=== PATIENT | female | born 1960 | race African-American/Black ===

== ENCOUNTER 2019-12-24 11:02 | Emergency (ER) | payer BC ==
[2019-12-24 11:26] VITALS: BP 124/66; PULSE 68; TEMP 98; BMI 35.4
[2019-12-24] MEDS ORDERED: SODIUM CHLORIDE 1,000 ML IV STA (11:45)
[2019-12-24] MEDS ORDERED: morphine CARPU-JECT 4 MG/1 ML DISP.SYRIN IVPUSH ONE (11:45)
--- NOTE | 2019-12-24 12:01 | PDOC ---
History of Present Illness - General Chief Complaint: Pain, Acute Stated Complaint: LWR ABD PAIN Time Seen by Provider: 12/24/19 11:37 History Source: Patient Exam Limitations: No Limitations - History of Present Illness Initial Comments: 12/24/19 11:47 Patient is a 59F with history of chronic back pain here today complaining of RLQ abdominal pain for the past two days. Patient states that the pain started suddenly two days ago and radiates to her back and leg. She reports that she can 't get comfortable. Denies vomiting, fevers, chills. Denies diarrhea. Last bowel movement yesterday. Patient states she thought her symptoms might be due to constipation so she took mag citrate at home. Denies shortness of breath, chest pain. Denies prior abdominal surgery. Patient reports going to acupuncture because she thought this may be related to her back pain. Past History - Past Medical History Allergies/Adverse Reactions: Allergies Allergy/AdvReac Type Severity Reaction Status Date / Time No Known Allergies Allergy Verified 12/24/19 13:27 Home Medications: Ambulatory Orders Oxycodone HCl/Acetaminophen [Percocet 5-325 mg Tablet -] 1 - 2 tab PO Q6H PRN # 10 tablet 10/14/13 Clotrimazole/Betamet Diprop [Lotrisone -] 1 tab PO BID 12/24/19 Cyclobenzaprine HCl [Flexeril 10 mg] 10 mg PO BID PRN 12/24/19 Ibuprofen 600 mg PO BID PRN 12/24/19 COPD: No - Immunization History Immunization Up to Date: No - Psycho Social/Smoking Cessation Hx Smoking History: Never smoked Have you smoked in the past 12 months: No Number of Cigarettes Smoked Daily: 3 Information on smoking cessation initiated: No Hx Alcohol Use: No Drug/Substance Use Hx: No Substance Use Type: None Review of Systems - Review of Systems Able to Perform ROS?: Yes Comments:: 12/24/19 12:02 GENERAL/CONSTITUTIONAL: No fever or chills. No weakness. HEAD, EYES, EARS, NOSE AND THROAT: No change in vision. No sore throat. CARDIOVASCULAR: No chest pain or shortness of breath RESPIRATORY: No cough, wheezing, or hemoptysis. GASTROINTESTINAL: No nausea, vomiting, diarrhea or constipation. GENITOURINARY: No dysuria, frequency, or change in urination. MUSCULOSKELETAL: No joint or muscle swelling or pain. No neck or back pain. SKIN: No rash NEUROLOGIC: No headache, vertigo, loss of consciousness, or change in strength/ sensation. ENDOCRINE: No increased thirst. No abnormal weight change ALLERGIC/IMMUNOLOGIC: No hives or skin allergy. *Physical Exam - Vital Signs Last Vital Signs Temp Pulse Resp BP Pulse Ox 98.0 F 68 16 124/66 95 12/24/19 11:24 12/24/19 11:24 12/24/19 11:24 12/24/19 11:24 12/24/19 11:24 - Physical Exam 12/24/19 12:18 GENERAL: Awake, alert, and fully oriented, laying on side, moving in pain HEAD: No signs of trauma, normocephalic, atraumatic EYES: PERRLA, EOMI, sclera anicteric, conjunctiva clear ENT: Auricles normal inspection, hearing grossly normal, nares patent, oropharynx clear without exudates. Moist mucosa NECK: Normal ROM, supple, no lymphadenopathy, JVD, or masses LUNGS: No distress, speaks full sentences, clear to auscultation bilaterally HEART: Regular rate and rhythm, normal S1 and S2, no murmurs, rubs or gallops, peripheral pulses normal and equal bilaterally. ABDOMEN: Soft, +RLQ tenderness, +obturator and psoas sign. No rigidity. EXTREMITIES: Normal inspection, Normal range of motion, no edema. No clubbing or cyanosis. NEUROLOGICAL: Cranial nerves II through XII grossly intact. Normal speech, no focal sensorimotor deficits SKIN: Warm, Dry, normal turgor, no rashes or lesions noted. ED Treatment Course - LABORATORY CBC & Chemistry Diagram: 12/24/19 12:00 12/24/19 12:00 - RADIOLOGY Radiology Studies Ordered: Category Date Time Status ABDOMEN & PELVIS CT WITH CONTR [CT] Stat CT Scan 12/24/19 11:46 Ordered Medical Decision Making - Medical Decision Making 12/24/19 12:26 Patient is 59F here today with RLQ abdominal pain. Vitals normal and stable. Exam notable for RLQ abdominal pain. DDx includes, but is not limited to: UTI, appendicits, kidney stone, hernia. Will evaluate further with cbc, cmp, lipase, ua/uc. Will treat with fluids and morphine. 12/24/19 14:39 CBC normal CMP reassuring. UA shows blood and bacturia. CT shows no nephrolithiasis or other significant abnormality Patient re-examined. Pain has improved. Changed from squeezing to an ache. Suspect stone passed between initial evaluation and CT scan. Will discharge home with return precautions. Will treat UA with keflex. Discharge - Discharge Information Problems reviewed: Yes Clinical Impression/Diagnosis: Kidney stone Condition: Stable Disposition: HOME - Admission No - Follow up/Referral - Patient Discharge Instructions Patient Printed Discharge Instructions: DI for Kidney Stones, DI for Urinary Tract Infection (UTI) Additional Instructions: Please return if you have any new, worsening or concerning symptoms. Please follow up with your primary care doctor this week. - Post Discharge Activity Work/Back to School Note: Back to Work
[2019-12-24] MEDS ORDERED: HYDROmorphone HCL CARPU-JECT 2 MG/1 ML DISP.SYRIN IVPUSH ONE (12:03)
[2019-12-24] MEDS ORDERED: HYDROmorphone HCl 2 MG/ML VIAL ONE (12:11)
[2019-12-24 12:28] LABS: INR 0.99 (0.83-1.09); PROTHROMBIN TIME (PATIENT) 11.7 SEC (9.7-13.0)
[2019-12-24 12:30] LABS: ACTIVATED PTT 32.8 SECONDS (25.2-36.5)
[2019-12-24 12:35] LABS: BASO % 0.6 % (0-2.0); EOS % 9.3 % (0-4.5); LYMPH % 27.2 % (8-40); MCH 29.5 pg (25.7-33.7); MCHC 32.7 g/dl (32.0-36.0); MEAN CELL VOLUME 90.3 fl (80-96); MEAN PLT VOLUME 7.6 fl (7.5-11.1); MONO % 8.3 % (3.8-10.2); NEUT % 54.6 % (42.8-82.8); PLATELET COUNT 269 K/MM3 (134-434); RDW 15.2 % (11.6-15.6); WHITE BLOOD COUNT 7.3 K/mm3 (4.0-10.0)
--- NOTE | 2019-12-24 12:40 | PDOC ---
Documentation entered by Vin Stern SCRIBE, acting as scribe for Gila Au DO. Gila Au DO: This documentation has been prepared by the Jarred vega Nirvannie, SCRIBE, under my direction and personally reviewed by me in its entirety. I confirm that the documentation accurately reflects all work, treatment, procedures, and medical decision making performed by me. Attending Attestation - Resident Resident Name: Ángel Butcher - ED Attending Attestation I have performed the following: I have examined & evaluated the patient, The case was reviewed & discussed with the resident, I agree w/resident's findings & plan, Exceptions are as noted - HPI HPI: 12/24/19 12:48 The patient is a 59 year old female, with a significant past medical history of sciatica, who presents to the emergency department with 2 days of RLQ abdominal pain with radiation to the back, suprapubic, and down the right leg. Patient endorses taking Citrate of Magnesia for her symptoms, with minimal relief. Patient notes she cannot feel comfortable secondary to her pain prompting her arrival to the ED. She denies recent fevers, chills, headache or dizziness. She denies recent nausea, vomiting, diarrhea or constipation. She denies recent dysuria, frequency, urgency or hematuria. She denies recent chest pain or shortness of breath. Allergies: NKDA Primary Care Physician: Dr. Duncan - Physicial Exam PE: 12/24/19 12:48 Constitutional: Awake, alert, oriented. No acute distress. Head: Normocephalic. Atraumatic Eyes: PERRL. EOMI. Conjunctivae are not pale. ENT: Mucous membranes are moist and intact. Posterior pharynx without exudates or erythema. Uvula midline. Neck: Supple. Full ROM. No lymphadenopathy. Cardiovascular: Regular rate. Regular rhythm. S1, S2 regular. Distal pulses are 2+ and symmetric. Pulmonary/Chest: No evidence of respiratory distress. Clear to auscultation bilaterally No wheezing, rales or rhonchi. Abdominal: + RLQ tenderness. Soft and non-distended. No rebound, guarding or rigidity. No organomegaly. No palpable masses. Good bowel sounds. Back: +Right flank, R lumbar tenderness. No midline tenderness. Musculoskeletal: No edema. No cyanosis. No clubbing. Full range of motion in all extremities. No calf tenderness. Radial/pedal pulses are intact and 2+ bilaterally Skin: Skin is warm and dry. No petechiae. No purpura. Neurological: Alert and oriented to person, place, and time. Cranial nerves II -XII are grossly intact. Normal speech. Strength is grossly symmetric. No sensory deficits. Psychiatric: Good eye contact. Normal interaction, affect and behavior. - Medical Decision Making 12/24/19 12:38 a/p: 59yo female with R flank/r back pain -pt states hx of sciatica -pt saw accupuncture x 2 without relief -pain to RLQ, tried mag citrate without relief, no assoc n/v/d -states pain in back, R flank, RLQ to suprapubic region -will send labs, ct abd/pelvis, no prior hx of renal colic, low suspicion for appy -will hydrate, dilaudid, reassess 12/24/19 13:59 pt with blood in urine suspect renal colic pt to ct 12/24/19 14:25 ct without acute intraabd pathology, no appy, no renal colic 12/24/19 14:45 pain improved, suspect passed renal stone will give keflex for bactiuria and recent stone stable for dc to home
[2019-12-24 13:00] LABS: EPI CELLS 5.5 /HPF (0-5/HPF); HYALINE CASTS 5 /lpf (0-8); PH,URINE 5.5 (5.0-8.0); URINE APPEARANCE CLOUDY; URINE BACTERIA 534.9 /hpf (NEGATIVE); URINE BILIRUBIN NEGATIVE (NEGATIVE); URINE COLOR YELLOW; URINE GLUCOSE (UA) NEGATIVE (NEGATIVE); URINE KETONE NEGATIVE (NEGATIVE); URINE LEUK ESTERASE NEGATIVE (NEGATIVE); URINE NITRITE NEGATIVE (NEGATIVE); URINE PROTEIN NEGATIVE (NEGATIVE); URINE RBC 4 /hpf (0-4); URINE UROBILINOGEN 0.2 mg/dL (0.2-1.0); URINE WBC 7 /hpf (0-5)
[2019-12-24 13:18] LABS: ALBUMIN 3.7 g/dl (3.4-5.0); BILIRUBIN,TOTAL 0.8 mg/dL (0.2-1); BLOOD UREA NITROGEN 11.9 mg/dL (7-18); CALCIUM 9.4 mg/dL (8.5-10.1); POTASSIUM 4.6 mmol/L (3.5-5.1); TOT PROT 7.6 g/dl (6.4-8.2)
[2019-12-24] MEDS ORDERED: CEPHALEXIN MONOHYDRATE 500 MG CAPSULE (UD) PO ONE (14:43)
[2019-12-24] MEDS ORDERED: CEPHALEXIN MONOHYDRATE 500 MG CAPSULE (UD) ONE (14:49)
== END 2019-12-24 14:59 | disposition home or self-care (01) ==
LOC: JER 11:02
PROC: 3E0337Z Introduction of Electrolytic and Water Balance Substance into Peripheral Vein, Percutaneous Approach (ICD-10-PCS; principal; 2019-12-24)
PROC: 3E033NZ Introduction of Analgesics, Hypnotics, Sedatives into Peripheral Vein, Percutaneous Approach (ICD-10-PCS; 2019-12-24)
DX: N20.0 Calculus of kidney (principal); R82.71 Bacteriuria; R31.9 Hematuria, unspecified
CPT/HCPCS: 36415; 74176-TC; 80053; 81003; 83690; 85025; 85610; 85730; 86850; 86900; 86901; 87086; 99284-25; J7030

== ENCOUNTER 2019-12-26 14:38 | Emergency (ER) | payer BC ==
[2019-12-26 14:45] VITALS: TEMP 98; BMI 35.4
--- NOTE | 2019-12-26 14:55 | PDOC ---
Rapid Medical Evaluation Chief Complaint: Pain, Acute Time Seen by Provider: 12/26/19 14:45 Medical Evaluation: Allergies Allergy/AdvReac Type Severity Reaction Status Date / Time No Known Allergies Allergy Verified 12/24/19 13:27 Vital Signs Temp Pulse Resp BP Pulse Ox 98.0 F 74 16 115/64 99 12/26/19 14:42 12/26/19 14:42 12/26/19 14:42 12/26/19 14:42 12/26/19 14:42 12/26/19 14:48 Pt c/o: continual rt abd pain now with dizziness, was here 2 days ago and placed on abx for uti Pt on brief exam: vss. no cva tenderness, rt lq/flank/ruq tenderness, pt ordered for: labs, urine, Pt to proceed to the ED Discharge Disposition - Diagnosis RLQ abdominal pain - Discharge Dispostion Disposition: HOME Condition at time of disposition: Improved - Prescriptions Prescriptions: Ketorolac Tromethamine [Toradol] 10 mg PO TID PRN #12 tablet PRN Reason: Pain Level 6-10 - Referrals Referrals: Shivam Duncan [Primary Care Provider] - - Patient Instructions Additional Instructions: You were seen and evaluated in the emergency department for abdominal pain. Emergency causes have been ruled out. Your pain is most likely from your currently treated UTI or a passed kidney stone. Imaging was negative for concerning causes. Continue your antibiotic as prescribed 12/24 for your urinary tract infection. A prescription pain medication (Toradol) has been sent to your pharmacy. Take this as directed. Please follow up with your primary care doctor in the next 2-3 days if symptoms persist. Return to the ED for any new or concerning symptoms. - Post Discharge Activity Work/School Note: Back to Work
[2019-12-26 16:20] LABS: BASO % 0.6 % (0-2.0); EOS % 6.3 % (0-4.5); HEMOGLOBIN 14.9 GM/dL (10.7-15.3); LYMPH % 33.7 % (8-40); MCH 29.3 pg (25.7-33.7); MCHC 33.1 g/dl (32.0-36.0); MEAN CELL VOLUME 88.4 fl (80-96); MEAN PLT VOLUME 7.3 fl (7.5-11.1); MONO % 9.5 % (3.8-10.2); NEUT % 49.9 % (42.8-82.8); PLATELET COUNT 240 K/MM3 (134-434); RBC 5.09 M/mm3 (3.60-5.2); RDW 14.6 % (11.6-15.6); WHITE BLOOD COUNT 6.6 K/mm3 (4.0-10.0)
[2019-12-26 16:37] LABS: ALBUMIN 3.8 g/dl (3.4-5.0); BILIRUBIN,TOTAL 0.6 mg/dL (0.2-1); BLOOD UREA NITROGEN 11.7 mg/dL (7-18); CALCIUM 9.4 mg/dL (8.5-10.1); CREATININE 1.1 mg/dL (0.55-1.3); TOT PROT 7.8 g/dl (6.4-8.2)
[2019-12-26] MEDS ORDERED: KETOROLAC TROMETHAMINE 30 MG/1 ML VIAL IVPUSH ONE (17:14)
[2019-12-26] MEDS ORDERED: SODIUM CHLORIDE 0.9% 500 ML INFUS.BAG IV ONE (17:14)
[2019-12-26] MEDS ORDERED: KETOROLAC TROMETHAMINE 30 MG/1 ML VIAL ONE (17:18)
[2019-12-26] MEDS ORDERED: morphine CARPU-JECT 4 MG/1 ML DISP.SYRIN IVPUSH ONE ×2 (17:45→19:33)
--- NOTE | 2019-12-26 17:46 | PDOC ---
History of Present Illness - General Chief Complaint: Pain, Acute Stated Complaint: KIDNEY STONE Time Seen by Provider: 12/26/19 14:45 History Source: Patient Exam Limitations: No Limitations - History of Present Illness Initial Comments: 12/26/19 17:46 54yF w PMHx sciatica, chronic back pain presenting w 2d intermittent RLQ pain, yesterday fever 102. Was seen 2d ago for similar symptoms, CT showed fibroid, no kidney stone, pancreas head calcification, diagnosed w UTI, DC home Took keflex, no pain meds, without relief. Denies nausea/vomiting, bowel mvmt changes , chest pain/SOB Primary Care Physician: Dr. Duncan Past History - Past Medical History Allergies/Adverse Reactions: Allergies Allergy/AdvReac Type Severity Reaction Status Date / Time No Known Allergies Allergy Verified 12/24/19 13:27 Home Medications: Ambulatory Orders NK [No Known Home Medication] 12/26/19 COPD: No - Reproductive History Therapeutic (s) & number: No - Immunization History Immunization Up to Date: No - Psycho Social/Smoking Cessation Hx Smoking History: Never smoked Have you smoked in the past 12 months: No Number of Cigarettes Smoked Daily: 3 Information on smoking cessation initiated: No Hx Alcohol Use: No Drug/Substance Use Hx: No Substance Use Type: None Review of Systems - Review of Systems Constitutional: Yes: Fever. No: Chills HEENTM: No: Eye Pain, Nose Pain Respiratory: No: Cough, Shortness of Breath Cardiac (ROS): No: Chest Pain, Palpitations ABD/GI: No: Abdominal Distended, Constipated, Diarrhea, Nausea, Vomiting : No: Burning, Dysuria Musculoskeletal: No: Back Pain, Joint Pain Integumentary: No: Bruising, Flushing Neurological: No: Headache, Seizure Psychiatric: No: Anxiety, Depression Endocrine: No: Intolerance to Cold, Intolerance to Heat Hematologic/Lymphatic: No: Anemia, Blood Clots *Physical Exam - Vital Signs Last Vital Signs Temp Pulse Resp BP Pulse Ox 98.0 F 74 16 115/64 99 12/26/19 14:42 12/26/19 14:42 12/26/19 14:42 12/26/19 14:42 12/26/19 14:42 - Physical Exam General Appearance: Yes: Nourished, Appropriately Dressed, Moderate Distress HEENT: positive: EOMI, PAWEL, Normal Voice, Hearing Grossly Normal Respiratory/Chest: positive: Lungs Clear, Normal Breath Sounds. negative: Chest Tender, Respiratory Distress Cardiovascular: positive: Regular Rhythm, Regular Rate, S1, S2. negative: Edema , Murmur Gastrointestinal/Abdominal: positive: Normal Bowel Sounds, Tender (moderate RLQ tender), Flat, Soft. negative: Organomegaly, Distended, Guarding, Rebound Musculoskeletal: positive: CVA Tenderness (R). negative: CVA Tenderness (L) Integumentary: positive: Normal Color Neurologic: positive: Fully Oriented, Alert, Normal Response, Respond to painful stimul, Responsive. negative: Confused, Disoriented ED Treatment Course - LABORATORY CBC & Chemistry Diagram: 12/26/19 15:40 12/26/19 15:40 - ADDITIONAL ORDERS Additional order review: Laboratory Results 12/26/19 12/26/19 15:40 15:40 Sodium 140 Potassium 4.0 Chloride 106 Carbon Dioxide 24 Anion Gap 9 BUN 11.7 Creatinine 1.1 Est GFR (CKD-EPI)AfAm 64.54 Est GFR (CKD-EPI)NonAf 55.69 Random Glucose 121 H Calcium 9.4 Total Bilirubin 0.6 AST 22 ALT 29 Alkaline Phosphatase 63 Total Protein 7.8 Albumin 3.8 Lipase 42 L 12/26/19 15:40 RBC 5.09 MCV 88.4 MCHC 33.1 RDW 14.6 MPV 7.3 L Neutrophils % 49.9 Lymphocytes % 33.7 D Monocytes % 9.5 Eosinophils % 6.3 H Basophils % 0.6 - RADIOLOGY Radiology Studies Ordered: Category Date Time Status KIDNEY / RENAL US [US] Stat Ultrasound 12/26/19 17:21 Ordered - Medications Given in the ED: ED Medications Discontinued Medications Generic Name Dose Route Start Last Admin Trade Name Freq PRN Reason Stop Dose Admin Ketorolac Tromethamine 30 mg 12/26/19 17:14 12/26/19 17:24 Toradol Injection - IVPUSH 12/26/19 17:15 30 mg ONCE ONE Administration Sodium Chloride 1,000 ml 12/26/19 17:14 12/26/19 17:24 Normal Saline - IV 12/26/19 17:15 1,000 ml ONCE ONE Administration Medical Decision Making - Medical Decision Making 12/26/19 18:59 Renal US - normal kidneys --- 54yF w PMHx sciatica, chronic back pain presenting w 2d intermittent RLQ pain, yesterday fever. UTI vs kidney stone. Low concern for pancreatitis vs pyelonephritis (normal kidney US) Given 4 morphine, toradol, 1L NS Signed out to night team - consider spiral CT if blood in UA concerning for kidney stone Discharge - Discharge Information Problems reviewed: Yes Clinical Impression/Diagnosis: RLQ abdominal pain Condition: Improved - Follow up/Referral Referrals: Shivam Duncan [Primary Care Provider] - - Patient Discharge Instructions - Post Discharge Activity
[2019-12-26] MEDS ORDERED: morphine SULFATE 4 MG/ML VIAL ONE (17:49)
[2019-12-26 19:12] LABS: EPI CELLS 5.1 /HPF (0-5/HPF); HYALINE CASTS 6 /lpf (0-8); URINE APPEARANCE CLEAR; URINE BACTERIA 74.1 /hpf (NEGATIVE); URINE BILIRUBIN NEGATIVE (NEGATIVE); URINE COLOR YELLOW; URINE GLUCOSE (UA) NEGATIVE (NEGATIVE); URINE KETONE NEGATIVE (NEGATIVE); URINE LEUK ESTERASE NEGATIVE (NEGATIVE); URINE NITRITE NEGATIVE (NEGATIVE); URINE PROTEIN TRACE (NEGATIVE); URINE RBC 2 /hpf (0-4); URINE WBC 4 /hpf (0-5)
--- NOTE | 2019-12-26 19:18 | PDOC ---
*Physical Exam - Vital Signs Last Vital Signs Temp Pulse Resp BP Pulse Ox 98.0 F 74 16 115/64 99 12/26/19 14:42 12/26/19 14:42 12/26/19 14:42 12/26/19 14:42 12/26/19 14:42 ED Treatment Course - LABORATORY CBC & Chemistry Diagram: 12/26/19 15:40 12/26/19 15:40 - ADDITIONAL ORDERS Additional order review: Laboratory Results 12/26/19 12/26/19 12/26/19 18:40 15:40 15:40 Sodium 140 Potassium 4.0 Chloride 106 Carbon Dioxide 24 Anion Gap 9 BUN 11.7 Creatinine 1.1 Est GFR (CKD-EPI)AfAm 64.54 Est GFR (CKD-EPI)NonAf 55.69 Random Glucose 121 H Calcium 9.4 Total Bilirubin 0.6 AST 22 ALT 29 Alkaline Phosphatase 63 Total Protein 7.8 Albumin 3.8 Lipase 42 L Urine Color Yellow Urine Appearance Clear Urine pH 5.0 Ur Specific Valders 1.018 Urine Protein Trace Urine Glucose (UA) Negative Urine Ketones Negative Urine Blood 2+ H Urine Nitrite Negative Urine Bilirubin Negative Urine Urobilinogen 1.0 Ur Leukocyte Esterase Negative Urine WBC (Auto) 4 Urine RBC (Auto) 2 Urine Casts (Auto) 6 U Epithel Cells (Auto) 5.1 Urine Bacteria (Auto) 74.1 12/26/19 15:40 RBC 5.09 MCV 88.4 MCHC 33.1 RDW 14.6 MPV 7.3 L Neutrophils % 49.9 Lymphocytes % 33.7 D Monocytes % 9.5 Eosinophils % 6.3 H Basophils % 0.6 - Medications Given in the ED: ED Medications Discontinued Medications Generic Name Dose Route Start Last Admin Trade Name Jassonq PRN Reason Stop Dose Admin Ketorolac Tromethamine 30 mg 12/26/19 17:14 12/26/19 17:24 Toradol Injection - IVPUSH 12/26/19 17:15 30 mg ONCE ONE Administration Morphine Sulfate 4 mg 12/26/19 17:45 12/26/19 17:52 Morphine Injection - IVPUSH 12/26/19 17:46 4 mg ONCE ONE Administration Sodium Chloride 1,000 ml 12/26/19 17:14 12/26/19 17:24 Normal Saline - IV 12/26/19 17:15 1,000 ml ONCE ONE Administration Medical Decision Making - Medical Decision Making 12/26/19 19:17 Sign-out received from Dr. Dinero - F/u UA - Spiral CT negative 12/2412/26/19 20:05 - No leukocytosis, no anemia - Normal CMP - 2+ blood in urine, no UTI evident (on Keflex) - CT on 12/24 without acute stone - Renal US without hydonephrosis - RX Toradol for 3 days Possibly passed a stone, currently treating UTI Pain control with toradol at home, no bleeding disorders PCP followup in 2-3 days Dispo: Home 12/26/19 21:55 Patient refusing to leave the department. States she cannot walk, walks 10 feet and back. Asks for pain medication repeatedly. No signs of pain, moving, bending, walking comfortably. Repeatedly calling the nursing supervisor accounts receivable "to report a medically unsafe discharge." Multiple conversations regarding her workup and evaluation. Nursing supervisor accounts receivable came to bedside and spoke with patient as well. Eventually agreed to leave the department given reiteration of the plan and a work note. Discharge - Discharge Information Problems reviewed: Yes Clinical Impression/Diagnosis: RLQ abdominal pain Condition: Improved Disposition: HOME - Admission No - Additional Discharge Information Prescriptions: Ketorolac Tromethamine [Toradol] 10 mg PO TID PRN #12 tablet PRN Reason: Pain Level 6-10 - Follow up/Referral Referrals: Shivam Duncan [Primary Care Provider] - - Patient Discharge Instructions Additional Instructions: You were seen and evaluated in the emergency department for abdominal pain. Emergency causes have been ruled out. Your pain is most likely from your currently treated UTI or a passed kidney stone. Imaging was negative for concerning causes. Continue your antibiotic as prescribed 12/24 for your urinary tract infection. A prescription pain medication (Toradol) has been sent to your pharmacy. Take this as directed. Please follow up with your primary care doctor in the next 2-3 days if symptoms persist. Return to the ED for any new or concerning symptoms. - Post Discharge Activity Work/Back to School Note: Back to Work
[2019-12-26 19:23] VITALS: BP 133/67; PULSE 61
[2019-12-26] MEDS ORDERED: MORPHINE SULFATE 2 MG/ML VIAL ONE (19:37)
--- NOTE | 2019-12-26 20:18 | PDOC ---
Documentation entered by Davide Vu SCRIBE, acting as scribe for Oksana Neal MD. Oksana Neal MD: This documentation has been prepared by the Horace vega Xhesika, SCRIBE, under my direction and personally reviewed by me in its entirety. I confirm that the documentation accurately reflects all work, treatment, procedures, and medical decision making performed by me. Attending Attestation - Resident Resident Name: Kalpesh Dinero - ED Attending Attestation I have performed the following: I have examined & evaluated the patient, The case was reviewed & discussed with the resident, I agree w/resident's findings & plan, Exceptions are as noted - HPI HPI: 12/26/19 18:16 The patient is a 59 year old female, with a significant past medical history of sciatica and chronic back pain who presents to the emergency department with 2 days of hematuria, back pain and fever. Pt was seen here in the ED 12/24/2019 for similar symptoms, CT significant for fibroid in uterus, calcification at the head of the pancreas and no kidney stones. Patient was discharged home and placed on abx for UTI. The patient denies chest pain, shortness of breath, headache and dizziness. Denies chills, cough, nausea, vomiting, diarrhea and constipation. Denies dysuria, frequency, urgency. Allergies: NKDA Primary Care Physician: Dr. Duncan - Physicial Exam PE: 12/26/19 18:18 GENERAL: Awake, alert, and fully oriented, in no acute distress HEAD: No signs of trauma NECK: Normal ROM, supple, no lymphadenopathy, JVD, or masses LUNGS: Breath sounds equal, clear to auscultation bilaterally. No wheezes, and no crackles HEART: Regular rate and rhythm, normal S1 and S2, no murmurs, rubs or gallops ABDOMEN: Soft, nontender, normoactive bowel sounds. No guarding, no rebound. No masses BACK: + L flank pain. EXTREMITIES: Normal range of motion, no edema. No clubbing or cyanosis. No cords, erythema, or tenderness NEUROLOGICAL: Cranial nerves II through XII grossly intact. Normal speech SKIN: Warm, Dry, normal turgor, no rashes or lesions noted. - Medical Decision Making 12/26/19 20:16 You have images shows a normal renal ultrasound with no hydronephrosis, no urinary obstructive pathology, no renal calculi CBC is unremarkable Chemistries are unremarkable UA is negative at this time except for +2 blood Patient was given Keflex for UTI 2 days ago Patient will be given some NSAIDs for her flank pain She had a CAT scan December 24 that did not show any acute pathology but did show a pancreatic head calcification 12/26/19 20:18 Patient is to finish her antibiotics and take NSAIDs for pain 12/26/19 20:19
== END 2019-12-26 22:25 | disposition home or self-care (01) ==
LOC: JER 14:38
PROC: 3E033NZ Introduction of Analgesics, Hypnotics, Sedatives into Peripheral Vein, Percutaneous Approach (ICD-10-PCS; principal; 2019-12-26)
PROC: 3E0333Z Introduction of Anti-inflammatory into Peripheral Vein, Percutaneous Approach (ICD-10-PCS; 2019-12-26)
DX: R10.31 Right lower quadrant pain (principal); Z87.440 Personal history of urinary (tract) infections
CPT/HCPCS: 36415; 76775-TC; 80053; 81003; 83690; 85025; 87086; 99283-25